=== PATIENT | female | born 1965 | race Caucasian/White ===

== ENCOUNTER 2020-08-11 09:28 | Emergency (ER) | payer OTHER ==
[2020-08-11 10:04] LABS: BASOPHIL 0.5 % (0-2); EOSINOPHIL 4.1 % (0-5); HCT 39.9 % (37.0-47.0); HGB 12.9 g/dl (12.5-16.0); LYMPHOCYTE 4.7 % (15-48); MCH 33.6 pg (25.0-31.0); MCHC 32.3 g/dL (32.0-36.0); MCV 103.9 fL (78.0-100.0); MONOCYTE 8.1 % (0-12); MPV 10.4 fL (6.0-9.5); NRBC 0.4; PLT 242 K/uL (150-400); RBC 3.84 M/uL (4.20-5.40); RDW 14.4 % (11.5-14.0); WBC 12.6 K/uL (4.0-10.5)
[2020-08-11 10:14] LABS: BILIRUBIN 2+ mg/dL (NEGATIVE); BLOOD NEGATIVE Ery/uL (NEGATIVE); CLARITY CLEAR (CLEAR); GLUCOSE (U) TRACE mg/dL (NORMAL); LEUKOCYTES NEGATIVE Leu/uL (NEGATIVE); NITRITE POSITIVE (NEGATIVE); PROTEIN 1+ mg/dL (NEGATIVE); SPECIFIC GRAVITY >=1.030 (1.001-1.030)
[2020-08-11 10:15] LABS: BILIRUBIN - TOTAL 0.8 mg/dL (0.2-1.0); CREATININE 0.69 mg/dL (0.51-0.95); GLOBULIN (CALCULATION) 4.7 g/dL; POTASSIUM 4.2 mmol/L (3.5-5.1); TOTAL PROTEIN 7.7 g/dL (6.4-8.2)
[2020-08-11 10:17] LABS: COLOR ORANGE (YELLOW)
[2020-08-11 10:20] LABS: BACTERIA TRACE; MUCOUS LARGE; URINARY WBC RARE
== END 2020-08-11 16:40 | disposition other institution (70) ==
LOC: FER 09:28
PROVIDERS: Emergency Medicine
DX: I31.3 Pericardial effusion (noninflammatory) (principal); R16.0 Hepatomegaly, not elsewhere classified; R00.0 Tachycardia, unspecified; F17.210 Nicotine dependence, cigarettes, uncomplicated; Z88.0 Allergy status to penicillin; Z98.890 Other specified postprocedural states; Z20.822 Contact with and (suspected) exposure to COVID-19
CPT/HCPCS: 36415; 71046; 80053; 81001; 83690; 85025; Q9967; U0002

== ENCOUNTER 2020-09-02 11:35 | Emergency (ER) | payer OTHER ==
[2020-09-02 12:31] LABS: BASOPHIL 0.1 % (0-2); HCT 47.1 % (37.0-47.0); LYMPHOCYTE 5.8 % (15-48); MCH 31.4 pg (25.0-31.0); MCHC 31.8 g/dL (32.0-36.0); MCV 98.7 fL (78.0-100.0); MONOCYTE 5.9 % (0-12); MPV 10.5 fL (6.0-9.5); NEUTROPHIL 63.7 % (41-80); NRBC 0; PLT 132 K/uL (150-400); RBC 4.77 M/uL (4.20-5.40); RDW 14.6 % (11.5-14.0); WBC 27.3 K/uL (4.0-10.5)
[2020-09-02 12:32] LABS: EOSINOPHIL 20.6 % (0-5)
[2020-09-02 12:34] LABS: INR 1.14 (0.9-1.2); PTT 27.5 SECONDS (24.4-34.7)
[2020-09-02 12:38] LABS: ALBUMIN 2.7 g/dL (3.4-5.0); BILIRUBIN - TOTAL 0.3 mg/dL (0.2-1.0); BUN/CREAT RATIO (CALC) 24.6 RATIO; CREATININE 0.65 mg/dL (0.51-0.95); GLOBULIN (CALCULATION) 6.1 g/dL; POTASSIUM 2.9 mmol/L (3.5-5.1); TOTAL PROTEIN 8.8 g/dL (6.4-8.2)
[2020-09-02 13:08] LABS: BILIRUBIN NEGATIVE (NEGATIVE); BLOOD NEGATIVE Ery/uL (NEGATIVE); CLARITY CLEAR (CLEAR); COLOR YELLOW (YELLOW); GLUCOSE (U) NORMAL (NORMAL); LEUKOCYTES NEGATIVE Leu/uL (NEGATIVE); NITRITE NEGATIVE (NEGATIVE); PROTEIN NEGATIVE (NEGATIVE); SPECIFIC GRAVITY 1.015 (1.001-1.030); UROBILINOGEN 0.2 mg/dL (0.2-1.0)
[2020-09-02 13:16] LABS: LACTIC ACID 2.4 mmol/L (0.4-1.9)
== END 2020-09-02 20:45 | disposition other institution (70) ==
LOC: FER 11:35
PROVIDERS: Emergency Medicine
DX: I63.9 Cerebral infarction, unspecified (principal); G81.91 Hemiplegia, unspecified affecting right dominant side; A41.9 Sepsis, unspecified organism; F17.210 Nicotine dependence, cigarettes, uncomplicated; Z88.0 Allergy status to penicillin; Z20.822 Contact with and (suspected) exposure to COVID-19
CPT/HCPCS: 36415; 70450; 71045; 80053; 81003; 82553; 83605; 84145; 85025; 85610; 85730; 87040; 87088; 93005; J1956; J3370; J3480; J7030; J7050; U0002